=== PATIENT | female | born 1970 | race Caucasian/White ===

== ENCOUNTER 2017-02-17 12:48 | Emergency (ER) | payer MEDICAID ==
[2017-02-17 13:56] LABS: APPEARANCE HAZY (CLEAR); BILIRUBIN NEGATIVE (NEGATIVE); COLOR YELLOW (YELLOW); GLUCOSE NEGATIVE (NEGATIVE); KETONE NEGATIVE (NEGATIVE); LEUKOCYTE ESTERASE NEGATIVE (NEGATIVE); NITRITE NEGATIVE (NEGATIVE); PROTEIN NEGATIVE (NEGATIVE); UROBILINOGEN NORMAL (NORMAL)
[2017-02-17 13:57] LABS: BASOPHILS 0.2 % (0-2); EOSINOPHILS 1.3 % (0-7); HEMATOCRIT 42.8 % (36.0-48.0); HEMOGLOBIN 13.9 g/dL (12-16); IMMATURE GRANULOCYTES 0.5 % (0-5); LYMPHOCYTES 11.1 % (15-50); MCH 30.5 pg (26.0-34.0); MCHC 32.5 g/dL (31.0-37.0); MCV 93.9 fL (80.0-100.0); MEAN PLATELET VOLUME 10.1 fL (7.4-10.4); MONOCYTES 3.7 % (2-11); NEUTROPHILS 83.2 % (40-80); PLATELET COUNT 219 10x3/uL (130-400); RBC 4.56 10x6/uL (4.00-5.40); RDW 13.6 % (11.5-14.5)
[2017-02-17 13:57] LABS: BACTERIA MODERATE /hpf (NONE SEEN); MUCUS <1+ /lpf (NONE SEEN); RED CELLS - URINE 0-5 /hpf (0-5); WHITE CELLS - URINE 0-5 /hpf (0-5)
[2017-02-17 14:07] LABS: ALBUMIN 3.2 g/dL (3.4-5.0); ALKALINE PHOSPHATASE 70 U/L (46-116); ALT (SGPT) 27 U/L (10-68); BILIRUBIN - TOTAL 0.26 mg/dL (0.2-1.3); CALC OSMOLALITY 278 mosm/kg (275-300); CALCIUM 8.7 mg/dL (8.5-10.1); CARBON DIOXIDE 23.1 mmol/L (21.0-32.0); CHLORIDE - SERUM 107 mmol/L (98-107); CREATININE - SERUM 0.7 mg/dL (0.6-1.3); GLUCOSE 109 mg/dL (74-106); POTASSIUM - SERUM 3.8 mmol/L (3.5-5.1); PROTEIN - SERUM 6.4 g/dL (6.4-8.2); SODIUM 140 mmol/L (136-145); UREA NITROGEN 11 mg/dL (7-18); eGFR NON AFRICAN AMERICAN > 90 mL/min (90-120)
[2017-02-17 14:18] LABS: CHOLESTEROL, TOTAL 130 mg/dL (0-200); CKMB 0.5 U/L (0.0-3.6); CREATINE KINASE 91 UL (21-215); HDL CHOLESTEROL 43 mg/dL (32-96); LDL CHOLESTEROL 68 mg/dL (0-100); LDL-HDL RATIO 1.6 ratio (1.5-3.5); TRIGLYCERIDE 97 mg/dL (30-200)
[2017-02-17 14:22] LABS: TROPONIN-I < 0.017 ng/mL (0.000-0.060)
== END 2017-02-17 15:38 | disposition home or self-care (01) ==
LOC: D.ER 12:48
PROVIDERS: Family Medicine; Nurse Practitioner Family
DX: R07.89 Other chest pain (principal); F41.9 Anxiety disorder, unspecified; F17.200 Nicotine dependence, unspecified, uncomplicated; G25.81 Restless legs syndrome

== ENCOUNTER 2017-09-25 23:42 | Emergency (ER) | payer MEDICAID | END 2017-09-26 01:57 | disposition home or self-care (01) | LOC: D.ER 23:42 | DX: S16.1XXA Strain of muscle, fascia and tendon at neck level, initial encounter (principal); V43.52XA Car driver injured in collision with other type car in traffic accident, initial encounter; Y93.89 Activity, other specified; Y92.410 Unspecified street and highway as the place of occurrence of the external cause; S29.012A Strain of muscle and tendon of back wall of thorax, initial encounter; S39.012A Strain of muscle, fascia and tendon of lower back, initial encounter; R51 Headache ==

== ENCOUNTER 2018-09-02 18:37 | Emergency (ER) | payer MEDICAID ==
[~2018-09-02] VITALS: Ht 157.5 cm; Wt 93.6 kg
[2018-09-02 18:42] VITALS: Ht 157.5 cm; Wt 93.6 kg
[2018-09-02] MEDS ORDERED: LEXAPRO20 MG PO (18:46)
[2018-09-02] MEDS ORDERED: ROBAXIN500 MG PO (18:46)
[2018-09-02] MEDS ORDERED: REQUIP0.5 MG PO (18:47)
[2018-09-02] MEDS ORDERED: TRAZODONE HCL100 MG PO (18:47)
[2018-09-02] MEDS ORDERED: ULTRAM50 MG PO (18:47)
[2018-09-02] MEDS ORDERED: ADIPEX-P37.5 M1 PO (18:48)
[2018-09-02 19:03] LABS: BASOPHILS 0.1 % (0-2); EOSINOPHILS 2.5 % (0-7); HEMATOCRIT 42.7 % (36.0-48.0); HEMOGLOBIN 14.5 g/dL (12-16); IMMATURE GRANULOCYTES 0.3 % (0-5); LYMPHOCYTES 10.6 % (15-50); MCH 30.1 pg (26.0-34.0); MCV 88.6 fL (80.0-100.0); MEAN PLATELET VOLUME 9.5 fL (7.4-10.4); MONOCYTES 2.7 % (2-11); NEUTROPHILS 83.8 % (40-80); PLATELET COUNT 248 10x3/uL (130-400); RBC 4.82 10x6/uL (4.00-5.40); WBC 10.8 10x3/uL (4.8-10.8)
[2018-09-02 19:13] LABS: ALBUMIN 3.3 g/dL (3.4-5.0); ALKALINE PHOSPHATASE 101 U/L (46-116); ALT (SGPT) 29 U/L (10-68); BILIRUBIN - TOTAL 0.34 mg/dL (0.2-1.3); CALC OSMOLALITY 279 mosm/kg (275-300); CARBON DIOXIDE 24.2 mmol/L (21.0-32.0); CHLORIDE - SERUM 103 mmol/L (98-107); CREATININE - SERUM 0.8 mg/dL (0.6-1.3); GLUCOSE 117 mg/dL (74-106); POTASSIUM - SERUM 3.8 mmol/L (3.5-5.1); PROTEIN - SERUM 7.3 g/dL (6.4-8.2); SODIUM 139 mmol/L (136-145); UREA NITROGEN 15 mg/dL (7-18); eGFR NON AFRICAN AMERICAN 81 mL/min (90-120)
[2018-09-02 19:25] LABS: AMYLASE - SERUM 28 U/L (25-115); CKMB 1.1 U/L (0.0-3.6); CREATINE KINASE 82 UL (21-215); LIPASE 84 U/L (73-393); TROPONIN-I < 0.017 ng/mL (0.000-0.060)
[2018-09-02 20:30] LABS: APPEARANCE CLEAR (CLEAR); BILIRUBIN NEGATIVE (NEGATIVE); COLOR YELLOW (YELLOW); GLUCOSE NEGATIVE (NEGATIVE); KETONE NEGATIVE (NEGATIVE); NITRITE NEGATIVE (NEGATIVE); PROTEIN NEGATIVE (NEGATIVE); SPECIFIC GRAVITY 1.005 (1.005-1.020); UROBILINOGEN NORMAL (NORMAL)
[2018-09-02] MEDS ORDERED: PROTONIX40 MG PO (21:20)
[2018-09-02] MEDS ORDERED: ZOFRAN4 MG PO (21:20)
[2018-09-02 21:31] VITALS: BP 127/69
== END 2018-09-02 21:30 | disposition home or self-care (01) ==
LOC: D.ER 18:37
PROVIDERS: Family Medicine
DX: K29.70 Gastritis, unspecified, without bleeding (principal); R11.10 Vomiting, unspecified; R10.13 Epigastric pain; F17.200 Nicotine dependence, unspecified, uncomplicated

== ENCOUNTER 2018-09-15 08:00 | Outpatient (CLI) | payer MEDICAID ==
[2018-09-02 18:42] VITALS: BMI 37.7
[~2018-09-15 08:00] MED LIST: ADIPEX-P37.5 M1 PO; LEXAPRO20 MG PO; PROTONIX40 MG PO; REQUIP0.5 MG PO; ROBAXIN500 MG PO; TRAZODONE HCL100 MG PO; ULTRAM50 MG PO; ZOFRAN4 MG PO
== END 2018-09-15 09:00 | disposition home or self-care (01) ==
LOC: D.MAMMO 08:00
DX: Z12.31 Encounter for screening mammogram for malignant neoplasm of breast (principal)

== ENCOUNTER → 2018-10-09 19:56 | Outpatient (CLI) | payer MEDICAID ==
[2018-09-02 18:42] VITALS: BMI 37.7
== END | disposition home or self-care (01) ==
LOC: D.MAMMO 13:30
DX: R92.8 Other abnormal and inconclusive findings on diagnostic imaging of breast (principal)

== ENCOUNTER 2018-12-02 18:14 | Emergency (ER) | payer MEDICAID ==
[~2018-12-02] VITALS: Ht 157.5 cm; Wt 102.3 kg
[2018-12-02 18:26] VITALS: Ht 157.5 cm; Wt 102.3 kg
[2018-12-02] MEDS ORDERED: MUCINEX DM ER1 EAC1 (18:39)
[2018-12-02] MEDS ORDERED: ALBUTEROL SULF8.5 GM INH ×2 (18:41→21:04)
[2018-12-02] MEDS ORDERED: FLUTICASONE PRO16 GM NASAL (18:41)
[2018-12-02] MEDS ORDERED: PHENERGAN DM SYR5 ML PO ×2 (18:42→21:04)
[2018-12-02 19:07] LABS: BASOPHILS 0.4 % (0-2); EOSINOPHILS 2.4 % (0-7); HEMATOCRIT 38.3 % (36.0-48.0); HEMOGLOBIN 12.3 g/dL (12-16); IMMATURE GRANULOCYTES 1.8 % (0-5); LYMPHOCYTES 17.7 % (15-50); MCH 27.9 pg (26.0-34.0); MCHC 32.1 g/dL (31.0-37.0); MCV 86.8 fL (80.0-100.0); MONOCYTES 5.9 % (2-11); NEUTROPHILS 71.8 % (40-80); PLATELET COUNT 229 10x3/uL (130-400); RBC 4.41 10x6/uL (4.00-5.40); WBC 14.2 10x3/uL (4.8-10.8)
[2018-12-02 19:26] LABS: ALBUMIN 3.4 g/dL (3.4-5.0); ALKALINE PHOSPHATASE 93 U/L (46-116); BILIRUBIN - TOTAL 0.27 mg/dL (0.2-1.3); CALC OSMOLALITY 272 mosm/kg (275-300); CALCIUM 8.7 mg/dL (8.5-10.1); CARBON DIOXIDE 23.8 mmol/L (21.0-32.0); CHLORIDE - SERUM 102 mmol/L (98-107); CREATININE - SERUM 0.7 mg/dL (0.6-1.3); GLUCOSE 102 mg/dL (74-106); POTASSIUM - SERUM 4.4 mmol/L (3.5-5.1); PROTEIN - SERUM 7.2 g/dL (6.4-8.2); SODIUM 136 mmol/L (136-145); UREA NITROGEN 14 mg/dL (7-18); eGFR NON AFRICAN AMERICAN > 90 mL/min (90-120)
[2018-12-02 19:39] LABS: ALT (SGPT) 39 U/L (10-68)
[2018-12-02 21:46] VITALS: BP 134/83
== END 2018-12-02 21:30 | disposition home or self-care (01) ==
LOC: D.ER 18:14
PROVIDERS: Family Medicine
DX: J06.9 Acute upper respiratory infection, unspecified (principal); J40 Bronchitis, not specified as acute or chronic

== ENCOUNTER → 2020-03-21 18:32 | Outpatient (CLI) | payer OTHER ==
[2018-12-02 18:26] VITALS: BMI 41.2
[~2020-03-21 18:32] MED LIST changes: +ALBUTEROL SULF8.5 GM INH; +FLUTICASONE PRO16 GM NASAL; +MUCINEX DM ER1 EAC1; +PHENERGAN DM SYR5 ML PO
== END | disposition home or self-care (01) ==
LOC: D.LABREF 18:32
PROVIDERS: ATTEND Orthopaedic Surgery
DX: M17.11 Unilateral primary osteoarthritis, right knee (principal)

== ENCOUNTER → 2020-12-12 14:07 | Outpatient (CLI) | payer OTHER ==
[~2020-12-12 14:07] MED LIST changes: +AMBIEN5 MG PO; +BUSPAR10 MG PO; +CIPRO500 MG PO; +COLACE100 MG PO; +CYMBALTA30 MG PO; +ELIQUIS2.5 MG PO; +GABAPENTIN300 MG PO; +HYDROCODON-ACE1 EA10 PO; +KEFLEX500 MG PO; +MIRAPEX0.5 MG PO; +PROMETRIUM200 MG PO; +TRAZODONE HCL150 MG PO; +VISTARIL50 MG PO; +ZANAFLEX4 MG PO; +oxyCODONE IR PO
== END | disposition home or self-care (01) ==
LOC: D.MRI 14:07
DX: M54.16 Radiculopathy, lumbar region (principal)

== ENCOUNTER 2020-12-22 13:00 | Outpatient (CLI) | payer OTHER, MEDICAID ==
[2020-06-11 09:26] VITALS: BMI 41.2
== END 2020-12-22 23:59 | disposition home or self-care (01) ==
LOC: D.MAMMO 13:00
PROVIDERS: ATTEND Family Medicine
DX: Z12.31 Encounter for screening mammogram for malignant neoplasm of breast (principal)